=== PATIENT | male | born 1995 | race Caucasian/White ===

== ENCOUNTER 2017-03-22 13:41 | Emergency (ER) | payer SELFPAY ==
[~2017-03-22] VITALS: Ht 188 cm; Wt 95.5 kg
[~2017-03-22 13:41] MED LIST: NOCURR
[2017-03-22 14:12] LABS: GLUCOSE,POINT OF CARE 95 MG/DL (70-110)
[2017-03-22] MEDS ORDERED: MAGNESIUM SULFATE 2 GM, MVI, ADULT NO.1 WITH VIT K 10 ML, THIAMINE HCL 100 MG, FOLIC AC... IV ONE ×5 (14:45)
[2017-03-22 19:29] VITALS: BP 115/69
== END 2017-03-22 20:10 | disposition home or self-care (01) ==
LOC: EMS 13:44
DX: F10.129 Alcohol abuse with intoxication, unspecified (principal); F14.10 Cocaine abuse, uncomplicated; F15.90 Other stimulant use, unspecified, uncomplicated; F32.9 Major depressive disorder, single episode, unspecified; Y90.7 Blood alcohol level of 200-239 mg/100 ml
CPT/HCPCS: 36415; 80307; 82962; 96365; 99285; G0480; J3411; J3475; J3490 ×2; J7030

== ENCOUNTER 2019-01-04 23:10 | Emergency (ER) | payer MEDICAID ==
[~2019-01-04] VITALS: Ht 188 cm; Wt 100.0 kg
[2019-01-04 23:31] VITALS: BP 141/93
== END 2019-01-05 00:05 | disposition left against medical advice (07) ==
LOC: EMS 23:18
DX: Z53.21 Procedure and treatment not carried out due to patient leaving prior to being seen by health care provider (principal)

== ENCOUNTER 2019-10-24 22:40 | Emergency (ER) | payer SELFPAY ==
[~2019-10-24] VITALS: Ht 185.4 cm; Wt 90.9 kg
[2019-10-25 00:15] VITALS: BP 135/90
[2019-10-25] MEDS ORDERED: LIDOCAINE 5% TRANSDERMAL PATCH TD ONE (00:30)
[2019-10-25] MEDS ORDERED: CYCLOBENZAPRINE HCL 10 MG TABLET PO ONE (00:30)
[2019-10-25] MEDS ORDERED: KETOROLAC TROMETHAMINE 30 MG/ML VIAL IM ONE (00:30)
[2019-10-25] MEDS ORDERED: ACETAMINOPHEN 500 MG TABLET PO ONE (00:30)
== END 2019-10-25 02:30 | disposition home or self-care (01) ==
LOC: EMS 22:41
DX: S16.1XXA Strain of muscle, fascia and tendon at neck level, initial encounter (principal); S29.012A Strain of muscle and tendon of back wall of thorax, initial encounter; S39.012A Strain of muscle, fascia and tendon of lower back, initial encounter; G43.909 Migraine, unspecified, not intractable, without status migrainosus; F17.210 Nicotine dependence, cigarettes, uncomplicated; F32.9 Major depressive disorder, single episode, unspecified; Z59.0 Homelessness; V49.9XXA Car occupant (driver) (passenger) injured in unspecified traffic accident, initial encounter; Y93.89 Activity, other specified; Y92.488 Other paved roadways as the place of occurrence of the external cause; Y99.8 Other external cause status
CPT/HCPCS: 96372; 99284; J1885

== ENCOUNTER 2023-01-24 07:04 | Emergency (ER) | payer MEDICAID, OTHER ==
[~2023-01-24] VITALS: Ht 185.4 cm; Wt 85.0 kg
[2023-01-24] MEDS ORDERED: TRAZ-257 PO (07:07)
[2023-01-24] MEDS ORDERED: HYDR-4808 PO (07:07)
[2023-01-24] MEDS ORDERED: PB/HYOSCY/ATR/SCOP/LIDO/MAALOX 55 ML BOTTLE PO ONE (07:45)
[2023-01-24] MEDS ORDERED: SODIUM CHLORIDE 0.9% 1,000 ML IV ONE (07:45)
[2023-01-24] MEDS ORDERED: ONDANSETRON HCL 4 MG/2 ML VIAL IVP ONE (07:45)
[2023-01-24] MEDS ORDERED: ONDANSETRON HCL 4 MG TABLET PO ONE (09:00)
[2023-01-24] MEDS ORDERED: HYDROCODONE/ACETAMINOPHEN 5-325 MG TABLET PO ONE (09:00)
[2023-01-24 09:02] LABS: BASOPHILS % (AUTO) 0.6 % (0.0-2.0); EOSINOPHILS % (AUTO) 1.6 % (1.0-6.0); HEMATOCRIT 48.8 % (41-53); HEMOGLOBIN 16.6 g/dL (13.5-17.5); LYMPHOCYTES # (AUTO) 1.8 K/uL (1.0-4.8); LYMPHOCYTES % (AUTO) 24.9 % (22.0-44.0); MEAN CORPUSCULAR HGB CONC 34.1 G/dL (31.0-37.0); MEAN CORPUSCULAR VOLUME 91 fL (80-100); MONOCYTES % (AUTO) 13.6 % (2.0-9.0); NEUTROPHILS # (AUTO) 4.4 K/uL (1.8-7.7); NEUTROPHILS % (AUTO) 59.3 % (40.0-70.0); PLATELET COUNT (AUTO) 291 K/uL (150-450); RED BLOOD CELL COUNT(AUTO) 5.36 MIL/uL (4.50-5.90); RED CELL DISTRIBUTION WIDTH 14.3 % (11.5-14.5)
[2023-01-24 09:07] LABS: ANION GAP 7 mmol/L (8-16); CALCIUM, TOTAL 9.2 mg/dL (8.8-10.5); CARBON DIOXIDE 30 mmol/L (22-29); CHLORIDE 105 mmol/L (98-107); CREATININE 0.86 mg/dL (0.60-1.30); GLOMERULAR FILTR. RATE CALC > 60 mL/min (>60); GLUCOSE,RANDOM 99 mg/dL (70-110); POTASSIUM 3.4 mmol/L (3.5-5.1); SODIUM SERUM 142 mmol/L (136-145); UREA NITROGEN, BLOOD 13 mg/dL (7-18)
[2023-01-24 09:13] LABS: ALANINE AMINOTRANSFERASE 28 U/L (12-78); ALKALINE PHOSPHATASE 120 U/L (46-116); ASPARTATE AMINOTRANSFERASE 16 U/L (15-37); BILIRUBIN,TOTAL 0.3 mg/dL (0.1-1.0); LIPASE 80 U/L (73-393); TOTAL PROTEIN, SERUM 7.3 g/dL (6.4-8.2)
[2023-01-24 09:53] VITALS: BP 131/84
[2023-01-24] MEDS ORDERED: LORA-999 PO (10:53)
[2023-01-24] MEDS ORDERED: MAG30ORA11 PO (10:53)
[2023-01-24] MEDS ORDERED: SUCR1TAB28 PO (10:53)
[2023-01-24] MEDS ORDERED: OMEP20 PO (10:53)
== END 2023-01-24 11:17 | disposition home or self-care (01) ==
LOC: EMS 07:13
DX: R10.13 Epigastric pain (principal); R07.89 Other chest pain; F41.9 Anxiety disorder, unspecified; K29.70 Gastritis, unspecified, without bleeding; F32.A Depression, unspecified; G43.909 Migraine, unspecified, not intractable, without status migrainosus; F17.210 Nicotine dependence, cigarettes, uncomplicated; Z59.00 Homelessness unspecified
CPT/HCPCS: 99285; 74176; 76700; 71045; 80053; 83690; 84484; 85025; 36415; 93005; J2405; Q0162; J7030